=== PATIENT | male | born 1965 | race Caucasian/White ===

== ENCOUNTER 2021-01-31 11:09 | Inpatient (IN) ==
[2021-01-31 13:35] LABS: Hematocrit 38.9 % (37.5-50.1); Hemoglobin 13.1 g/dL (12.9-16.9); Mean Corpuscular HGB Conc 33.7 g/dL (31.6-35.5); Mean Corpuscular Hemoglobin 29.5 pg (28.0-33.3); Mean Corpuscular Volume 87.6 fL (83.0-100.0); Mean Platelet Volume 10.1 fL (9.4-12.4); Platelet Count 301 K/mcL (140-400); Red Blood Count 4.44 M/mcL (4.19-5.50); Red Cell Distribution Width 12.5 % (11.5-14.5); White Blood Count 7.4 K/mcL (4.3-11.1)
[2021-01-31 13:56] LABS: BUN/Creatinine Ratio 27 (6-26); Blood Urea Nitrogen 24 mg/dL (6-20); Calcium 9.1 mg/dL (8.6-10.3); Carbon Dioxide 22 mEq/L (23-29); Chloride 94 mEq/L (98-107); Glucose 133 mg/dL (70-105); Osmolality,Calculated 274 (280-300); Potassium 4.2 mEq/L (3.5-5.1); Sodium 129 mEq/L (136-145); Troponin I < 0.03 ng/mL (< 0.04); eGFR For African Americans > 60 (> 60); eGFR For Non-African Americans > 60 (> 60)
[2021-01-31] MEDS ORDERED: Albuterol 2.5 MG/3 ML NEBULIZER IH ONE (14:02)
[2021-01-31] MEDS ORDERED: dexAMETHasone 4 MG TABLET PO ONE (14:33)
[2021-01-31] MEDS ORDERED: 0.9 % Sodium Chloride 1,000 ML IVC ONE (14:54)
[2021-01-31 14:59] LABS: Lymphocytes # 0.7 K/mcL (0.6-4.6); Neutrophils # 6.7 K/mcL (1.6-8.9)
[2021-01-31 15:00] LABS: Platelet Estimate Normal (Normal)
[2021-01-31] MEDS ORDERED: Naloxone 0.4 MG/ML INJ IVP PRN (15:38)
[2021-01-31] MEDS ORDERED: Ondansetron 4 MG/2 ML VIAL IVP PRN (15:44)
[2021-01-31] MEDS ORDERED: *HR* HYDROcodone/Acet 5/325 mg TABLET PO PRN (15:44)
[2021-01-31] MEDS ORDERED: Melatonin 3 MG TABLET PO PRN (15:44)
[2021-01-31 16:39] LABS: INR 1.3; Prothrombin Time 14.6 Seconds (9.4-12.1)
[2021-01-31 17:07] LABS: Alanine Aminotransferase 48 Units/L (7-52); Albumin 3.9 g/dL (3.5-5.7); Albumin/Globulin Ratio 1.1 (1.1-2.2); Alkaline Phosphatase 55 Units/L (34-104); Aspartate Amino Transferase 34 Units/L (13-39); Bilirubin,Direct 0.1 mg/dL (0.0-0.2); Bilirubin,Indirect 0.5 mg/dL (0.0-1.0); Bilirubin,Total 0.6 mg/dL (0.3-1.0); C-Reactive Protein 123 mg/L (Less than 10); Globulin 3.4 g/dL (2.4-3.5); Lactate Dehydrogenase 346 Units/L (140-271); Total Protein 7.3 g/dL (6.4-8.9)
[2021-01-31 17:17] LABS: Ferritin > 1500 ng/mL (20-250)
[2021-01-31] MEDS ORDERED: Remdesivir 200 MG in 0.9 % Sodium Chloride 100 ML IVPB ONE (18:15)
[2021-01-31] MEDS: Ipratropium 1 PUFF INHALER IH SCH ×2 (18:29→20:01)
[2021-01-31] MEDS: Artificial Tears SOLN 15 ML BOTTLE BOTH EYES SCH ×2 (18:29→20:42)
[2021-01-31] MEDS: Saline Nasal Spray 44 ML BOTTLE NS SCH ×2 (18:30→20:42)
[2021-01-31] MEDS: Saliva Stimulant 44.3ml BOTTLE PO SCH ×2 (18:30→20:42)
[2021-01-31] MEDS: Chlorhexidine Rinse 15 ML MOUTHWASH MM SCH (20:43)
[2021-02-01 03:25] LABS: Basophils % 0.3 %; Hemoglobin 11.9 g/dL (12.9-16.9); Immature Granulocytes % 0.5 % (0-4); Lymphocytes # 0.6 K/mcL (0.6-4.6); Lymphocytes % 9.6 %; Mean Corpuscular HGB Conc 33.1 g/dL (31.6-35.5); Mean Corpuscular Hemoglobin 29.2 pg (28.0-33.3); Mean Corpuscular Volume 88.5 fL (83.0-100.0); Mean Platelet Volume 9.8 fL (9.4-12.4); Monocytes # 0.3 K/mcL (0.0-1.3); Monocytes % 3.9 %; Neutrophils # 5.5 K/mcL (1.6-8.9); Platelet Count 342 K/mcL (140-400); Red Blood Count 4.07 M/mcL (4.19-5.50); Red Cell Distribution Width 12.3 % (11.5-14.5); Segmented Neutrophils % 85.7 %; White Blood Count 6.4 K/mcL (4.3-11.1)
[2021-02-01 03:34] LABS: INR 1.2
[2021-02-01 03:42] LABS: Alanine Aminotransferase 43 Units/L (7-52); Albumin 3.6 g/dL (3.5-5.7); Albumin/Globulin Ratio 1.1 (1.1-2.2); Alkaline Phosphatase 52 Units/L (34-104); Aspartate Amino Transferase 25 Units/L (13-39); BUN/Creatinine Ratio 32 (6-26); Bilirubin,Direct 0.1 mg/dL (0.0-0.2); Bilirubin,Indirect 0.4 mg/dL (0.0-1.0); Bilirubin,Total 0.5 mg/dL (0.3-1.0); Blood Urea Nitrogen 26 mg/dL (6-20); C-Reactive Protein 125 mg/L (Less than 10); Calcium 8.8 mg/dL (8.6-10.3); Carbon Dioxide 24 mEq/L (23-29); Chloride 99 mEq/L (98-107); Globulin 3.3 g/dL (2.4-3.5); Glucose 139 mg/dL (70-105); Lactate Dehydrogenase 318 Units/L (140-271); Magnesium 2.3 mg/dL (1.6-2.6); Osmolality,Calculated 281 (280-300); Potassium 4.7 mEq/L (3.5-5.1); Sodium 132 mEq/L (136-145); Total Protein 6.9 g/dL (6.4-8.9); eGFR For African Americans > 60 (> 60); eGFR For Non-African Americans > 60 (> 60)
[2021-02-01] MEDS: Ipratropium 1 PUFF INHALER IH SCH ×4 (03:56→19:48)
[2021-02-01 04:15] LABS: Platelet Estimate Normal (Normal); Reactive Lymphocytes Present (Not Present)
[2021-02-01 05:12] LABS: Ferritin > 1500 ng/mL (20-250)
[2021-02-01] MEDS: *HR* Enoxaparin 40 MG/0.4 ML SYRINGE SQ SCH (05:29)
[2021-02-01] MEDS: Artificial Tears SOLN 15 ML BOTTLE BOTH EYES SCH ×4 (09:49→20:31)
[2021-02-01] MEDS: Saliva Stimulant 44.3ml BOTTLE PO SCH ×4 (09:49→20:31)
[2021-02-01] MEDS: Acetaminophen 325 MG TABLET PO PRN ×2 (09:49→22:52)
[2021-02-01] MEDS: Saline Nasal Spray 44 ML BOTTLE NS SCH ×4 (09:49→20:31)
[2021-02-01] MEDS: Multivit/Ca/Min/Fe/FA 1 TAB TABLET PO SCH (09:50)
[2021-02-01] MEDS: Cholecalciferol (D-3) 1,000 UNIT (25MCG) TABLET PO SCH (09:50)
[2021-02-01] MEDS: Chlorhexidine Rinse 15 ML MOUTHWASH MM SCH ×2 (09:51→20:31)
[2021-02-01] MEDS: Furosemide 20 MG/2 ML VIAL IVP SCH (09:53)
[2021-02-01] MEDS: Azithromycin 500 MG in 0.9 % Sodium Chloride 250 ML IVPB SCH (09:54)
[2021-02-01] MEDS: cefTRIAXone 2,000 MG in Water for inj. (sterile) 20 ML IVP SCH (09:54)
[2021-02-01] MEDS: Sennosides 8.6 MG TABLET PO SCH ×2 (13:35→20:31)
[2021-02-01] MEDS ORDERED: Remdesivir 100 MG in 0.9 % Sodium Chloride 100 ML IVPB SCH (19:00)
[2021-02-01] MEDS: polyethylene glycoL 3350 17 GM POWD.PACK PO PRN (20:32)
[2021-02-02] MEDS: Ipratropium 1 PUFF INHALER IH SCH ×4 (03:37→19:59)
[2021-02-02 04:16] LABS: Hematocrit 36.8 % (37.5-50.1); Hemoglobin 12.4 g/dL (12.9-16.9); Mean Corpuscular HGB Conc 33.7 g/dL (31.6-35.5); Mean Corpuscular Hemoglobin 30.1 pg (28.0-33.3); Mean Corpuscular Volume 89.3 fL (83.0-100.0); Mean Platelet Volume 9.8 fL (9.4-12.4); Platelet Count 416 K/mcL (140-400); Red Blood Count 4.12 M/mcL (4.19-5.50); Red Cell Distribution Width 12.2 % (11.5-14.5)
[2021-02-02 04:18] LABS: White Blood Count 9.8 K/mcL (4.3-11.1)
[2021-02-02 04:47] LABS: BUN/Creatinine Ratio 37 (6-26); Blood Urea Nitrogen 29 mg/dL (6-20); Calcium 8.8 mg/dL (8.6-10.3); Carbon Dioxide 25 mEq/L (23-29); Chloride 100 mEq/L (98-107); Glucose 120 mg/dL (70-105); Osmolality,Calculated 287 (280-300); Potassium 4.5 mEq/L (3.5-5.1); Sodium 135 mEq/L (136-145); eGFR For African Americans > 60 (> 60); eGFR For Non-African Americans > 60 (> 60)
[2021-02-02 04:48] LABS: Albumin 3.6 g/dL (3.5-5.7); Bilirubin,Direct 0.1 mg/dL (0.0-0.2); Bilirubin,Indirect 0.3 mg/dL (0.0-1.0); Bilirubin,Total 0.4 mg/dL (0.3-1.0); Globulin 3.5 g/dL (2.4-3.5); Total Protein 7.1 g/dL (6.4-8.9)
[2021-02-02] MEDS: *HR* Enoxaparin 40 MG/0.4 ML SYRINGE SQ SCH (06:06)
[2021-02-02] MEDS: Chlorhexidine Rinse 15 ML MOUTHWASH MM SCH ×2 (08:07→21:12)
[2021-02-02] MEDS: Multivit/Ca/Min/Fe/FA 1 TAB TABLET PO SCH (08:07)
[2021-02-02] MEDS: Cholecalciferol (D-3) 1,000 UNIT (25MCG) TABLET PO SCH (08:07)
[2021-02-02] MEDS: Sennosides 8.6 MG TABLET PO SCH ×2 (08:07→21:12)
[2021-02-02] MEDS: Furosemide 20 MG/2 ML VIAL IVP SCH (08:08)
[2021-02-02] MEDS: cefTRIAXone 2,000 MG in Water for inj. (sterile) 20 ML IVP SCH (08:09)
[2021-02-02] MEDS: Saline Nasal Spray 44 ML BOTTLE NS SCH ×4 (08:10→21:13)
[2021-02-02] MEDS: polyethylene glycoL 3350 17 GM POWD.PACK PO PRN (08:10)
[2021-02-02] MEDS: Saliva Stimulant 44.3ml BOTTLE PO SCH ×4 (08:10→21:12)
[2021-02-02] MEDS: Artificial Tears SOLN 15 ML BOTTLE BOTH EYES SCH ×4 (08:10→21:12)
[2021-02-02] MEDS: Azithromycin 500 MG in 0.9 % Sodium Chloride 250 ML IVPB SCH (08:10)
[2021-02-03 03:39] LABS: Hemoglobin 13.1 g/dL (12.9-16.9); Mean Corpuscular HGB Conc 32.8 g/dL (31.6-35.5); Mean Corpuscular Hemoglobin 29.4 pg (28.0-33.3); Mean Corpuscular Volume 89.9 fL (83.0-100.0); Mean Platelet Volume 9.5 fL (9.4-12.4); Platelet Count 462 K/mcL (140-400); Red Blood Count 4.45 M/mcL (4.19-5.50); Red Cell Distribution Width 12.2 % (11.5-14.5); White Blood Count 9.2 K/mcL (4.3-11.1)
[2021-02-03 03:58] LABS: Alanine Aminotransferase 108 Units/L (7-52); Albumin 3.8 g/dL (3.5-5.7); Albumin/Globulin Ratio 1.1 (1.1-2.2); Alkaline Phosphatase 66 Units/L (34-104); Aspartate Amino Transferase 37 Units/L (13-39); BUN/Creatinine Ratio 33 (6-26); Bilirubin,Direct 0.1 mg/dL (0.0-0.2); Bilirubin,Indirect 0.4 mg/dL (0.0-1.0); Bilirubin,Total 0.5 mg/dL (0.3-1.0); Blood Urea Nitrogen 32 mg/dL (6-20); Calcium 9.2 mg/dL (8.6-10.3); Carbon Dioxide 27 mEq/L (23-29); Chloride 98 mEq/L (98-107); Globulin 3.6 g/dL (2.4-3.5); Glucose 111 mg/dL (70-105); Osmolality,Calculated 288 (280-300); Potassium 4.5 mEq/L (3.5-5.1); Sodium 135 mEq/L (136-145); Total Protein 7.4 g/dL (6.4-8.9); eGFR For African Americans > 60 (> 60); eGFR For Non-African Americans > 60 (> 60)
[2021-02-03] MEDS: Ipratropium 1 PUFF INHALER IH SCH ×5 (04:08→19:58)
[2021-02-03] MEDS: *HR* Enoxaparin 40 MG/0.4 ML SYRINGE SQ SCH (05:11)
[2021-02-03] MEDS: Sennosides 8.6 MG TABLET PO SCH ×2 (10:01→21:36)
[2021-02-03] MEDS: Chlorhexidine Rinse 15 ML MOUTHWASH MM SCH ×2 (10:01→21:35)
[2021-02-03] MEDS: Multivit/Ca/Min/Fe/FA 1 TAB TABLET PO SCH (10:01)
[2021-02-03] MEDS: Artificial Tears SOLN 15 ML BOTTLE BOTH EYES SCH ×4 (10:02→21:36)
[2021-02-03] MEDS: Saliva Stimulant 44.3ml BOTTLE PO SCH ×4 (10:02→21:37)
[2021-02-03] MEDS: cefTRIAXone 2,000 MG in Water for inj. (sterile) 20 ML IVP SCH (10:03)
[2021-02-03] MEDS: Azithromycin 500 MG in 0.9 % Sodium Chloride 250 ML IVPB SCH (10:04)
[2021-02-03] MEDS: Saline Nasal Spray 44 ML BOTTLE NS SCH ×4 (10:04→21:37)
[2021-02-03] MEDS: Furosemide 20 MG/2 ML VIAL IVP SCH (10:05)
[2021-02-03] MEDS: Cholecalciferol (D-3) 1,000 UNIT (25MCG) TABLET PO SCH (12:25)
[2021-02-04] MEDS: Ipratropium 1 PUFF INHALER IH SCH ×4 (03:43→19:50)
[2021-02-04] MEDS: *HR* Enoxaparin 40 MG/0.4 ML SYRINGE SQ SCH (05:23)
[2021-02-04 05:48] LABS: Hematocrit 37.3 % (37.5-50.1); Hemoglobin 12.4 g/dL (12.9-16.9); Mean Corpuscular HGB Conc 33.2 g/dL (31.6-35.5); Mean Corpuscular Hemoglobin 29.6 pg (28.0-33.3); Mean Platelet Volume 9.4 fL (9.4-12.4); Platelet Count 461 K/mcL (140-400); Red Blood Count 4.19 M/mcL (4.19-5.50); Red Cell Distribution Width 12.1 % (11.5-14.5)
[2021-02-04 06:16] LABS: BUN/Creatinine Ratio 34 (6-26); Blood Urea Nitrogen 32 mg/dL (6-20); Carbon Dioxide 26 mEq/L (23-29); Chloride 100 mEq/L (98-107); Glucose 101 mg/dL (70-105); Osmolality,Calculated 287 (280-300); Potassium 4.2 mEq/L (3.5-5.1); Sodium 135 mEq/L (136-145); eGFR For African Americans > 60 (> 60); eGFR For Non-African Americans > 60 (> 60)
[2021-02-04 06:18] LABS: Albumin 3.6 g/dL (3.5-5.7); Albumin/Globulin Ratio 1.1 (1.1-2.2); Bilirubin,Direct 0.1 mg/dL (0.0-0.2); Bilirubin,Indirect 0.4 mg/dL (0.0-1.0); Bilirubin,Total 0.5 mg/dL (0.3-1.0); Globulin 3.3 g/dL (2.4-3.5); Total Protein 6.9 g/dL (6.4-8.9)
[2021-02-04] MEDS: cefTRIAXone 2,000 MG in Water for inj. (sterile) 20 ML IVP SCH (08:34)
[2021-02-04] MEDS: Saline Nasal Spray 44 ML BOTTLE NS SCH ×3 (08:35→18:54)
[2021-02-04] MEDS: Artificial Tears SOLN 15 ML BOTTLE BOTH EYES SCH ×3 (08:35→18:54)
[2021-02-04] MEDS: Saliva Stimulant 44.3ml BOTTLE PO SCH ×3 (08:35→18:54)
[2021-02-04] MEDS: Multivit/Ca/Min/Fe/FA 1 TAB TABLET PO SCH (08:36)
[2021-02-04] MEDS: Cholecalciferol (D-3) 1,000 UNIT (25MCG) TABLET PO SCH (08:36)
[2021-02-04] MEDS: Chlorhexidine Rinse 15 ML MOUTHWASH MM SCH (08:36)
[2021-02-04] MEDS: Sennosides 8.6 MG TABLET PO SCH (08:36)
[2021-02-04] MEDS: Furosemide 20 MG/2 ML VIAL IVP SCH (08:37)
[2021-02-04] MEDS ORDERED: Azithromycin 250 MG TABLET PO SCH (09:00)
[2021-02-04 16:20] VITALS: BP 117/74; PULSE 96; TEMP 97.6
[2021-02-04 19:56] VITALS: O2SAT 94
== END 2021-02-04 20:30 | disposition home or self-care (01) | DRG 871 ==
LOC: EMEROOARM 11:09 → 2ANU 16:40 → SUATTDRO 16:40 → 2ANU 17:37
PROVIDERS: ADMIT Internal Medicine; ATTEND Internal Medicine